=== PATIENT | female | born 1940 | race Caucasian/White ===

== ENCOUNTER → 2018-06-29 11:49 | Outpatient (CLI) | payer MEDICARE, SELFPAY ==
[2018-06-29 13:15] LABS: Basophils # 0.1 K/mm3 (0-0.2); Basophils % 0.4 % (0.1-2.0); Eosinophils # 1.8 K/mm3 (0.0-0.4); Eosinophils % 15.8 % (0.1-12.0); Hematocrit 40.6 % (37.0-47.0); Hemoglobin 12.9 g/dL (12.2-16.2); Lymphocytes # 3.3 K/mm3 (0.7-4.5); Lymphocytes % 29.4 K/mm3 (10-50); Mean Corpuscular HGB Conc 31.9 g/dL (31.8-35.4); Mean Corpuscular Hemoglobin 29.8 pg (27.0-31.2); Mean Corpuscular Volume 93.5 fl (81-99); Mean Platelet Volume 8.7 fl (7.4-10.4); Monocytes # 0.4 K/mm3 (0.1-1.0); Monocytes % 3.7 % (1.7-9.3); Neutrophils # 5.7 K/mm3 (1.8-7.8); Neutrophils % 50.6 % (37.0-80.0); Platelet Count 262 K/mm3 (142-424); Red Blood Count 4.34 M/mm3 (4.20-5.40); Red Cell Distribution Width 14.6 % (11.5-17.5); White Blood Count 11.2 K/mm3 (4.8-10.8)
[2018-06-29 14:30] LABS: Alanine Aminotransferase 17 U/L (12-78); Albumin Level 3.6 gm/dL (3.4-5.0); Albumin/Globulin Ratio 1.1 (1.1-1.8); Alkaline Phosphatase 88 U/L (46-116); Anion Gap 9.6 mEq/L (5-15); Aspartate Amino Transferase 15 U/L (15-37); Bilirubin,Total 0.4 mg/dL (0.2-1.0); Blood Urea Nitrogen 13 mg/dL (7-18); Calcium 8.7 mg/dL (8.5-10.1); Carbon Dioxide 32 mmol/L (21.0-32.0); Chloride 102 mmol/L (98-107); Cholesterol 157 mg/dL (140-200); Creatinine,Serum 0.66 mg/dL (0.55-1.02); Estimated Glomerular Filt Rate 86 ml/min (>60); Free Thyroxine Index 3.2 ug/dL (5.93-13.13); GFR (African American) 105 ML/MIN (>60); Globulin 3.4 gm/dl (1.3-3.2); Glucose 89 mg/dL (74-106); HDL Cholesterol 53 mg/dL (29-89); LDL Cholesterol 66 mg/dL (0-130); Magnesium 1.9 mg/dL (1.4-2.2); Potassium 3.6 mmoL/L (3.5-5.1); Sodium 140 mmol/L (136-145); T4 (Thyroxine) 9.9 ug/dl (4.7-13.3); Thyroid Stimulating Hormone 1.98 uIU/ml (0.358-3.740); Triglycerides 188 mg/dL (30-200); Triiodothryronine (T3) Uptake 32 % (31-39); VLDL Cholesterol 38 mg/dL (0-40)
== END ==
PROVIDERS: PCP Internal Medicine Adolescent Medicine; Visit Provider Internal Medicine Adolescent Medicine
DX: J44.9 Chronic obstructive pulmonary disease, unspecified (principal); E78.1 Pure hyperglyceridemia; G47.62 Sleep related leg cramps
CPT/HCPCS: 36415; 80053; 80061; 83735; 84436; 84443; 84479; 85025

== ENCOUNTER 2018-12-10 12:38 | Observation (INO) ==
--- NOTE | 2018-12-10 12:55 | Emergency Department Note ---
ED Disposition Clinical Impression: Colitis Disposition: Admitted As Inpatient Condition on Discharge: Fair Referrals: Provider,Supa, [Primary Care Provider] - Time of Disposition: 19:31 - Critical Care Critical Care Time: No Attestation: On 12/10/18, the high probability of a clinically significant, sudden or life threatening deterioration of the following system(s) required my full and direct attention, intervention and personal management. The time I documented below is in addition to time spent performing reported procedures but includes the following listed in this critical care notation. Medical Decision Making - Medical Records Medical records reviewed: Yes: I reviewed the patient's medical records. - Valentin Inquiry Pt receiving controlled substance: No Valentin was queried for this patient: No Vital Signs: 12/10/18 12:49 12/10/18 13:57 12/10/18 14:30 Temperature 98.1 F Temperature Source Oral Pulse Rate [Left Radial] 60 77 87 Respiratory Rate 17 16 17 Blood Pressure [Right Arm] 135/74 111/52 L 123/85 Blood Pressure Mean [Right Arm] 94 71 97 Blood Pressure Source [Right Arm] Automatic Cuff Automatic Cuff Automatic Cuff Blood Pressure Position [Right Arm] Sitting Sitting Sitting 02 Sat by Pulse Oximetry 94 L 94 L 95 Oxygen Delivery Method Room Air Room Air Nasal Cannula Oxygen Flow Rate (LPM) 2 12/10/18 15:00 12/10/18 16:15 12/10/18 17:00 Temperature Temperature Source Pulse Rate [Left Radial] 89 76 69 Respiratory Rate 20 16 Blood Pressure [Right Arm] 119/81 97/43 L 107/53 L Blood Pressure Mean [Right Arm] 93 61 71 Blood Pressure Source [Right Arm] Automatic Cuff Automatic Cuff Automatic Cuff Blood Pressure Position [Right Arm] Sitting Sitting Supine 02 Sat by Pulse Oximetry 99 93 L 96 Oxygen Delivery Method Room Air Room Air Oxygen Flow Rate (LPM) 12/10/18 17:30 12/10/18 18:14 Temperature Temperature Source Pulse Rate [Left Radial] 98 H 81 Respiratory Rate 18 18 Blood Pressure [Right Arm] 116/70 141/66 H Blood Pressure Mean [Right Arm] 85 91 Blood Pressure Source [Right Arm] Blood Pressure Position [Right Arm] 02 Sat by Pulse Oximetry 98 96 Oxygen Delivery Method Room Air Room Air Oxygen Flow Rate (LPM) - Lab Data Lab results reviewed: Yes: I reviewed the patient's lab results. Lab Results 12/10/18 13:32: POC Glucose 106 12/10/18 15:15: Urine Color Yellow, Urine Appearance Clear, Urine pH 6.0, Ur Specific [place] 1.025, Urine Protein Negative, Urine Glucose (UA) Negative, Urine Ketones Negative, Urine Blood Negative, Urine Nitrate Negative, Urine Bilirubin Negative, Urine Urobilinogen 0.2, Ur Leukocyte Esterase Negative, Urine RBC None, Urine WBC None, Ur Squamous Epith Cells Occasional, Urine Bacteria Trace, Urine Mucus 1+ 12/10/18 15:33: WBC 12.8 H, RBC 4.10 L, Hgb 12.3, Hct 38.9, MCV 95.0, MCH 30.1, MCHC 31.6 L, RDW 14.8, Plt Count 207, MPV 9.7, Neut % (Auto) 74.5, Lymph % ( Auto) 14.5, [place] % (Auto) 3.1, Eos % (Auto) 7.5, Baso % (Auto) 0.4, Neut # (Auto) 9.5 H, Lymph # (Auto) 1.9, [place] # (Auto) 0.4, Eos # (Auto) 1.0 H, Baso # (Auto) 0.1 12/10/18 15:33: Sodium 143, Potassium 4.7, Chloride 106, Carbon Dioxide 25, Anion Gap 16.7 H, BUN 16, Creatinine 0.98, Estimated Creat Clear 34, Estimated GFR 55 L, Est GFR ( Amer) 66, Glucose 107 H, Calcium 9.0, Total Bilirubin 0.5, AST 21, ALT 23, Alkaline Phosphatase 87, Total Protein 7.7, Albumin 3.6, Globulin 4.1 H, Albumin/Globulin Ratio 0.9 L Result diagrams: 12/10/18 15:33 12/10/18 15:33 Orders (Tests/Meds): ED MEDICATIONS Discontinued Medications Generic Name Dose Route Start Last Admin Trade Name Freq PRN Reason Stop Dose Admin Lorazepam 1 mg 12/10/18 17:55 12/10/18 17:57 Ativan 1mg Tablet PO 12/10/18 17:56 1 mg ONCE ONE Administration ORDERS Category Date Time Status Drug Screen,Urine Stat Lab 12/10/18 15:15 Received General Adult HPI - General Stated complaint: headache Time Seen by Provider: 04/11/19 12:51 Mode of Arrival: EMS Source of Information: Patient, EMS Limitations: No Limitations - History of Present Illness HPI narrative: right sided headache, "buzzing in head", now R sided neck pain and agitation - Related Data Home Medications Medication Instructions Recorded Confirmed Amlodipine Besylate [Norvasc 5mg 5 mg PO DAILY 03/21/18 12/10/18 tablet] Baclofen [Lioresal 10mg tablet] 10 mg PO TIDP PRN 03/21/18 12/10/18 Hydrocodone/Acetaminophen 1 each PO QID 03/21/18 12/10/18 [Hydrocodone-Acetamin 10-325 mg] Montelukast Sodium [Montelukast 10 mg PO HS 03/21/18 12/10/18 10mg Tab] Omeprazole [Omeprazole 40mg 40 mg PO DAILY 03/21/18 12/10/18 Capsule] RX: Buspirone HCl [Buspar 10mg 10 mg PO TID PRN 03/21/18 12/10/18 tablet] Simvastatin [Zocor] 20 mg PO HS 03/21/18 12/10/18 Fluoxetine HCl [Fluoxetine Dr] 90 mg PO DAILY 12/10/18 12/10/18 Gabapentin [Gabapentin 300mg Cap] 300 mg PO DAILY 12/10/18 12/10/18 RX: Ibuprofen [Ibuprofen 600mg 600 mg PO DAILY 12/10/18 12/10/18 Tablet] dimenhyDRINATE [Dimenhydrinate] 50 mg PO DAILY 12/10/18 12/10/18 Allergies Allergy/AdvReac Type Severity Reaction Status Date / Time Codeine Allergy Intermediate Uncoded 03/21/18 12:49 [facility] History - Hepatitis A Screen Attestation statement:: This patient has been screened for Hepatitis A risk factors. I have reviewed the patient's past medical history: Yes Laterality Cases: Bilateral: Tonsillectomy, Total Hip Replacement - Social History Alcohol Intake: never ROS Obtained: Yes All systems reviewed & no additional complaints - Constitutional Constitutional: Reports system reviewed and no additional complaints, except as docu, Denies chills, Denies fever(s) - Eyes Eyes: Denies change in vision - ENT Ears, Nose, Mouth, and Throat: Denies system reviewed and no additional complaints, except as docu, Denies sore throat, Denies throat swelling - Cardiovascular Cardiovascular: Denies chest pain, Denies pedal edema, Denies rapid heart rate, Denies slow heart rate - Respiratory Respiratory: No system reviewed and no additional complaints, except as docu, Yes chest congestion, Yes cough, No dyspnea - Gastrointestinal Gastrointestingal: Reports: system reviewed and no additional complaints, except as docu - Musculoskeletal Musculoskeletal: Denies joint pain, Denies joint stiffness, Denies joint swelling - Integumentary/Breasts Skin/Breast: Denies redness, Denies rash - Neurologic Neurologic: Reports unsteadiness, Reports headache(s), Reports tremor(s), Reports other (worsening of baseline) - Hematologic/Lymphatic Henatologic/Lymphatic: Denies easy bleeding, Denies easy bruising Physical Exam - General General appearance: alert, in no apparent distress, other (gross tremor) - Head Head exam: atraumatic, normocephalic, normal inspection - Eye Eye exam: Present: normal appearance, PERRL, EOMI - ENT ENT exam: Present: normal exam, normal oropharynx, mucous membranes moist, TM's normal bilaterally, normal external ear exam - Neck Neck exam: Present: normal inspection, full ROM, trachea midline. Absent: meningismus, lymphadenopathy - Respiratory Respiratory exam: Present: normal lung sounds bilaterally. Absent: respiratory distress - Cardiovascular Cardiovascular exam: Present: regular rate, normal rhythm. Absent: JVD - Abdominal Exam Abdominal exam: Present: soft, normal bowel sounds. Absent: distention, tenderness, guarding - Extremities Exam Extremities exam: Present: normal inspection, full ROM, normal capillary refill. Absent: calf tenderness - Neurological Exam Neurological exam: Present: alert, oriented X3, CN II-XII intact. Absent: motor sensory deficit - Psychiatric Psychiatric exam: Present: agitated - Skin Skin exam: Present: warm, dry, intact, normal color
[2018-12-10 15:21] LABS: Microscopic, Urine URINE MICROSCOPIC (MICROSCOPIC)
[2018-12-10 15:23] LABS: Appearance,Urine CLEAR (Clear); Bilirubin,Urine Negative (Negative); Blood, Urine Negative (Negative); Color,Urine YELLOW (Yellow); Glucose,Urine (UA) Negative (Negative); Ketones,Urine Negative (Negative); Leukocyte Esterase,Urine Negative (Negative); Protein,Urine Negative (Negative); Specific Gravity, Urine 1.025 (1.005-1.030); Urobilinogen,Urine 0.2 EU/dl (0.2)
[2018-12-10 15:35] LABS: Bacteria,Urine Trace /lpf; Mucus,Urine 1+ /lpf; Squamous Epithelial Cell,Urine Occasional #/hpf (0-5)
[2018-12-10 15:45] LABS: Basophils # 0.1 K/mm3 (0-0.2); Basophils % 0.4 % (0.1-2.0); Eosinophils % 7.5 % (0.1-12.0); Hematocrit 38.9 % (37.0-47.0); Hemoglobin 12.3 g/dL (12.2-16.2); Lymphocytes # 1.9 K/mm3 (0.7-4.5); Lymphocytes % 14.5 % (10-50); Mean Corpuscular HGB Conc 31.6 g/dL (31.8-35.4); Mean Corpuscular Hemoglobin 30.1 pg (27.0-31.2); Mean Platelet Volume 9.7 fl (7.4-10.4); Monocytes # 0.4 K/mm3 (0.1-1.0); Monocytes % 3.1 % (1.7-9.3); Neutrophils # 9.5 K/mm3 (1.8-7.8); Neutrophils % 74.5 % (37.0-80.0); Platelet Count 207 K/mm3 (142-424); Red Cell Distribution Width 14.8 % (11.5-17.5); White Blood Count 12.8 K/mm3 (4.8-10.8)
[2018-12-10 15:54] LABS: Albumin Level 3.6 gm/dL (3.4-5.0); Albumin/Globulin Ratio 0.9 (1.1-1.8); Anion Gap 16.7 mEq/L (5-15); Bilirubin,Total 0.5 mg/dL (0.2-1.0); Globulin 4.1 gm/dl (1.3-3.2); Potassium 4.7 mmoL/L (3.5-5.1); Total Protein,Serum 7.7 gm/dL (6.4-8.2)
[2018-12-10 19:43] LABS: Amphetamine/Metha Screen,Urine Negative ng/mL (<1000); Barbiturates Screen,Urine Negative ng/mL (<200); Benzodiazepines Screen,Urine Negative ng/mL (<200); Cannabinoid Screen,Urine Negative ng/mL (<50); Cocaine Screen,Urine Negative ng/mL (<300); Methadone Screen,Urine Negative ng/mL (<300); Opiate Screen,Urine Positive ng/mL (<300); Phencyclidine Screen,Urine Negative ng/mL (<25)
[2018-12-11 06:02] LABS: Basophils % 0.3 % (0.1-2.0); Eosinophils % 9.8 % (0.1-12.0); Hematocrit 33.6 % (37.0-47.0); Hemoglobin 11.2 g/dL (12.2-16.2); Lymphocytes # 2.2 K/mm3 (0.7-4.5); Lymphocytes % 22.2 % (10-50); Mean Corpuscular HGB Conc 33.3 g/dL (31.8-35.4); Mean Corpuscular Hemoglobin 30.7 pg (27.0-31.2); Mean Corpuscular Volume 92.2 fl (81-99); Mean Platelet Volume 9.9 fl (7.4-10.4); Monocytes # 0.3 K/mm3 (0.1-1.0); Monocytes % 3.4 % (1.7-9.3); Neutrophils # 6.3 K/mm3 (1.8-7.8); Neutrophils % 64.2 % (37.0-80.0); Platelet Count 188 K/mm3 (142-424); Red Blood Count 3.64 M/mm3 (4.20-5.40); Red Cell Distribution Width 14.5 % (11.5-17.5); White Blood Count 9.8 K/mm3 (4.8-10.8)
[2018-12-11 06:12] LABS: Anion Gap 13.4 mEq/L (5-15); Calcium 8.6 mg/dL (8.5-10.1); Potassium 3.4 mmoL/L (3.5-5.1)
--- NOTE | 2018-12-11 07:37 | Pharmacy Consult Notes ---
[facility] Pharmacy VTE Monitoring - Patient Demographics Admission date: 12/10/18 Report Date: 12/11/18 Time: 07:37 Allergies/Adverse Reactions: Patient Allergies Codeine Allergy (Intermediate, Uncoded 03/21/18 12:49) Height: 1.55 m Weight: 66.763 kg Patient Problems: Current Active Problems Colitis (Acute) Change in mental status (Acute) Psychosis (Acute) - VTE Risk Labs: VTE Related Lab Results Hgb 11.2 g/dL (12.2-16.2) L 12/11/18 05:48 Hct 33.6 % (37.0-47.0) L 12/11/18 05:48 Plt Count 188 K/mm3 (142-424) 12/11/18 05:48 BUN 15 mg/dL (7-18) 12/11/18 05:48 Creatinine 0.78 mg/dL (0.55-1.02) D 12/11/18 05:48 Estimated Creat Clear 48 mL/min (50-200) 12/11/18 05:48 VTE Score: 8 VTE Risk Level: Moderate Risk - Prophylaxis VTE Prophylaxis Ordered?: Yes Types of VTE Prophylaxis: TEDS Knee High Location of Applied Device: Bilateral Lower Extremeties - VTE Diagnosis Confirmed Treatment or plan recommended: Continue Current Treatment
--- NOTE | 2018-12-11 11:57 | History & Physical Report ---
*Admission Date: 12/10/18 *Chief complaint: confused, encephalopathic *History of present illness: 77-year-old female who presents with her niece. They initially presented to the emergency room last night due to concern for worsening confusion and hallucinations. Patient is oriented to person place and time with subsequent response to internal stimuli and begins answering questions she was not asked by myself. She denies any fever, trauma, falls, syncope, new medications. Her niece who is with her states that for the past 3-4 days she has become more altered and confused. She appears pleasant and is not a danger to herself however her behavior is quite concerning to her family. Her niece states that there is a significant family history of psychiatric problems, the patient has always been a little different per her but never has she had hallucinations. Brought her medications with her, she is on multiple things that are of concern he could have adverse reaction including hallucination. Admitted for observation and psychiatric evaluation [facility] History I have reviewed the patient's past medical history: Yes Medical History: Reports:: Hyperlipidemia, Hypertension Denies:: Cancer, Diabetes Mellitus Type 1, Diabetes Mellitus Type 2, MRSA *Have you ever received a pneumonia vaccine?: Yes *Have you received a flu vaccine this season?: Yes Laterality Cases: Bilateral: Tonsillectomy, Total Hip Replacement, Total Knee Replacement Other Surgeries: Yes: Colonoscopy, Hysterectomy-Partial Amputation: No Fractures: No - *Social History Educational Level: Attended High School Smoking Status: Former smoker Alcohol Intake: never Substance Use Type: opiates *Occupational Status:: retired Housing: house Household Members: family *Travel in the last 8 weeks: None - Psychiatric History Expresses thoughts of harming self/others: None Suicide Plan Description: No Plan Family Hx:: Diabetes Review of Systems - Review of Systems Review of systems:: pertinent systems reviewed and negative unless documented below - *Neurologic Reports unsteadiness, Reports headache(s), Reports tremor(s), Reports other (worsening of baseline) Meds Home Medications Medication Instructions Recorded Confirmed Type Amlodipine Besylate [Norvasc 5mg 5 mg PO DAILY 03/21/18 12/10/18 History tablet] Hydrocodone/Acetaminophen 1 each PO QID 03/21/18 12/10/18 History [Hydrocodone-Acetamin 10-325 mg] Montelukast Sodium [Montelukast 10 mg PO HS 03/21/18 12/10/18 History 10mg Tab] Omeprazole [Omeprazole 40mg 40 mg PO DAILY 03/21/18 12/10/18 History Capsule] Simvastatin [Zocor] 20 mg PO HS 03/21/18 12/10/18 History Gabapentin [Gabapentin 300mg Cap] 300 mg PO DAILY 12/10/18 12/10/18 History Cholecalciferol (Vitamin D3) 1,000 unit PO DAILY 12/11/18 12/11/18 History [Vitamin D3 1,000 Unit Cap] Cyanocobalamin (Vitamin B-12) 1,000 mcg SQ MONTHLY 12/11/18 12/11/18 History [Cyanocobalamin 1,000mcg/mL Vial] Multivitamin [Multivitamins] 1 each PO DAILY 12/11/18 12/11/18 History Allergies Allergy/AdvReac Type Severity Reaction Status Date / Time codeine Allergy Unknown Verified 12/11/18 07:48 allergy reaction Exam Vital signs and Labs for Last 24 Hours: Temp Pulse Resp BP Pulse Ox 97.9 F 83 18 157/48 H 95 12/11/18 08:00 12/11/18 08:00 12/11/18 08:00 12/11/18 08:00 12/11/18 08:00 Laboratory Results - last 24 hr 12/10/18 13:32: POC Glucose 106 12/10/18 15:15: Urine Color Yellow, Urine Appearance Clear, Urine pH 6.0, Ur Specific [place] 1.025, Urine Protein Negative, Urine Glucose (UA) Negative, Urine Ketones Negative, Urine Blood Negative, Urine Nitrate Negative, Urine Bilirubin Negative, Urine Urobilinogen 0.2, Ur Leukocyte Esterase Negative, Urine RBC None, Urine WBC None, Ur Squamous Epith Cells Occasional, Urine Bacteria Trace, Urine Mucus 1+ 12/10/18 15:15: Urine Opiates Screen Positive H, Urine Methadone Screen Negative, Ur Barbituates Screen Negative, Ur Phencyclidine Scrn Negative, Ur Amphetamines Screen Negative, U Benzodiazepines Scrn Negative, Urine Cocaine Screen Negative, U Marijuana (THC) Screen Negative 12/10/18 15:33: WBC 12.8 H, RBC 4.10 L, Hgb 12.3, Hct 38.9, MCV 95.0, MCH 30.1, MCHC 31.6 L, RDW 14.8, Plt Count 207, MPV 9.7, Neut % (Auto) 74.5, Lymph % (Auto) 14.5, [place] % (Auto) 3.1, Eos % (Auto) 7.5, Baso % (Auto) 0.4, Neut # (Auto) 9.5 H, Lymph # (Auto) 1.9, [place] # (Auto) 0.4, Eos # (Auto) 1.0 H, Baso # (Auto) 0.1 12/10/18 15:33: Sodium 143, Potassium 4.7, Chloride 106, Carbon Dioxide 25, Anion Gap 16.7 H, BUN 16, Creatinine 0.98, Estimated Creat Clear 34, Estimated GFR 55 L, Est GFR ( Amer) 66, Glucose 107 H, Calcium 9.0, Total Bilirubin 0.5, AST 21, ALT 23, Alkaline Phosphatase 87, Total Protein 7.7, Albumin 3.6, Globulin 4.1 H, Albumin/Globulin Ratio 0.9 L 12/11/18 05:48: WBC 9.8, RBC 3.64 L, Hgb 11.2 L, Hct 33.6 L, MCV 92.2, MCH 30.7, MCHC 33.3, RDW 14.5, Plt Count 188, MPV 9.9, Neut % (Auto) 64.2, Lymph % (Auto) 22.2, [place] % (Auto) 3.4, Eos % (Auto) 9.8, Baso % (Auto) 0.3, Neut # (Auto) 6.3, Lymph # (Auto) 2.2, [place] # (Auto) 0.3, Eos # (Auto) 1.0 H, Baso # (Auto) 0.0 12/11/18 05:48: Sodium 142, Potassium 3.4 L D, Chloride 107, Carbon Dioxide 25, Anion Gap 13.4, BUN 15, Creatinine 0.78 D, Estimated Creat Clear 48, Estimated GFR 71, Est GFR ( Amer) 86 D, Glucose 98, Calcium 8.6 12/11/18 07:32: Ammonia < 10 L I & O for Last 24 hours: Intake & Output 12/08/18 12/09/18 12/10/18 12/11/18 23:59 23:59 23:59 23:59 Intake Total 120 / 120 Balance 120 / 120 Weight 66.763 kg 66.763 kg Narrative: Pleasant 77-year-old female who appears stated age. Alert and oriented to person place and time, responding to internal stimuli including visual and auditory hallucinations. Lungs clear to auscultation without rhonchi or wheeze. Heart regular without murmur. No lower extremity edema. Pulses 2+ throughout. Abdomen soft nontender, nondistended.. Assessment and Plan (1) Encephalopathy acute Status: Acute Category: Medical Code(s): G93.40 - Encephalopathy, unspecified Peers to be acute over the past couple days. Review of patient's medications shows that she takes significant psychiatric meds along with pain medication. Additionally there are several unprescribed [id number] medications including Benadryl, caffeine, dextromethorphan, and dimenhydrinate. All of these together could account for adverse reactions and interactions with hallucinations and encephalopathy being 1 of those symptoms. At this time a consultation has been placed with psychiatry for assessment of the patient. Will hold patient's medications other than her Prozac to decrease her exposure and help clear her system of possible adverse interacting medications that can have psychiatric side effects. Currently patient is not a harm to herself or others. She is not aggressive. Further management pending psychiatry's recommendations. (2) COPD (chronic obstructive pulmonary disease) Status: Chronic Qualifiers: COPD type: chronic bronchitis Category: Medical Code(s): J44.9 - Chronic obstructive pulmonary disease, unspecified Stable. No symptoms at this time. Not on any inhalers at home. Think treatments if has any respiratory distress (3) HTN (hypertension) Status: Chronic Qualifiers: Hypertension type: essential hypertension Qualified Code(s): I10 - Essential (primary) hypertension Category: Medical Code(s): I10 - Essential (primary) hypertension Continue home regimen. (4) Anxiety Status: Chronic Category: Medical Code(s): F41.9 - Anxiety disorder, unspecified Restart patient's Prozac. Holding all other meds at this time. Pending psychiatry recommendation and assessment (5) Headache Status: Acute Qualifiers: Headache type: tension-type Category: Medical Code(s): R51 - Headache Stable on exam this morning. On hydrocodone with Tylenol, no additional pain meds at this time - Assessment and plan all Dx Assessment and Plan for all problems:: At this time extensive med review was done. Significant interaction between patient's antidepressants and [id number] medications including Benadryl, dimenhydrinate, caffeine pills, Mucinex D. Suspect adverse medication reaction. Psychiatry to assess patient and do formal evaluation. Further management pending psychiatric recommendations.
--- NOTE | 2018-12-11 16:56 | Consult Report ---
*Admission Date: 12/10/18 *Chief complaint: Consult by attention for change in mental status and psychosis. *History of present illness: I saw Mrs. Alejandra in her room. She was sitting up in the bed eating lunch. She states that the reason she is here is because of a stinging in her tongue. She states that it started there then went to her legs; and her pelvis; then she states that if it went to her head that she would have . She states that when this started to happen she just prayed over and over that she would be okay. -her niece is at the beside and she does confirm this story. -her niece states that she went into Palmer's bedroom to check on her yesterday morning -when she went in her room; she was bending over like she was trying to continuous pickling line pickler helper something off the ground; but there was nothing there -she states that this is when she started talking about having something on her tongue -she states that Vilma had picked at this spot on her tongue until it was raw; but there was nothing there -this is when they brought her to the ER -her niece states that this has never happened to her before While I was in the room; Vilma did engage in very odd conversations. She would say things like '10 on the 9; and above the 19'. She told me that above my left eye I had the numbers '10' '5' 'y' on there. There was one point that she was rubbing her finger with her napkin. When I asked her what she was doing; she stated that she had 7's on her finger and she could not get them off. Her niece states that she has been seeing number and letters since all of this happened yesterday. Her niece also states that Vilma was taking care of her medications prior to this incident. She states that they are not sure if she mixed up any of her medications or how she was really taking everything. I also talked to Dr. Rivera. He states that all her test came back normal and there is no obvious explanation for this. RECOMMENDATIONS: -have her niece take over her medication management and distributing the medications daily -Follow up with myself on Friday in the specialty clinic -if symptoms are not better; will consider putting her on an anti-psychotic to clear the hallucinations up -I did relay this over the phone to Dr. Rivera; he is agreeable to the above. -also; hold her buspar and prozac at this time -want to eliminate all unnecessary medications at this time to see if the ps ychosis clears up on its own [facility] History Medical History: Reports:: Hyperlipidemia, Hypertension Denies:: Cancer, Diabetes Mellitus Type 1, Diabetes Mellitus Type 2, MRSA *Have you ever received a pneumonia vaccine?: Yes *Have you received a flu vaccine this season?: Yes Laterality Cases: Bilateral: Tonsillectomy, Total Hip Replacement, Total Knee Replacement Other Surgeries: Yes: Colonoscopy, Hysterectomy-Partial Amputation: No Fractures: No - *Social History Educational Level: Attended High School Smoking Status: Former smoker Alcohol Intake: never Substance Use Type: opiates *Occupational Status:: retired Housing: house Household Members: family *Travel in the last 8 weeks: None - Psychiatric History Expresses thoughts of harming self/others: None Suicide Plan Description: No Plan Family Hx:: Diabetes Review of Systems - *Neurologic Reports unsteadiness, Reports headache(s), Reports tremor(s), Reports other (worsening of baseline) Meds Home Medications Medication Instructions Recorded Confirmed Type Amlodipine Besylate [Norvasc 5mg 5 mg PO DAILY 03/21/18 12/10/18 History tablet] Baclofen [Lioresal 10mg tablet] 10 mg PO BIDP PRN 03/21/18 12/11/18 History Buspirone HCl [Buspar 10mg tablet] 10 mg PO TIDP PRN 03/21/18 12/11/18 History Hydrocodone/Acetaminophen 1 each PO QID 03/21/18 12/10/18 History [Hydrocodone-Acetamin 10-325 mg] Montelukast Sodium [Montelukast 10 mg PO HS 03/21/18 12/10/18 History 10mg Tab] Omeprazole [Omeprazole 40mg 40 mg PO DAILY 03/21/18 12/10/18 History Capsule] Simvastatin [Zocor] 20 mg PO HS 03/21/18 12/10/18 History Gabapentin [Gabapentin 300mg Cap] 300 mg PO DAILY 12/10/18 12/10/18 History Ibuprofen [Ibuprofen 600mg 600 mg PO Q6HP PRN 12/10/18 12/11/18 History Tablet] dimenhyDRINATE [Dimenhydrinate] 50 mg PO DAILY 12/10/18 12/10/18 History Caffeine 200 mg PO NEEDED PRN 12/11/18 12/11/18 History Cholecalciferol (Vitamin D3) 1,000 unit PO DAILY 12/11/18 12/11/18 History [Vitamin D3 1,000 Unit Cap] Cyanocobalamin (Vitamin B-12) 1,000 mcg SQ MONTHLY 12/11/18 12/11/18 History [Cyanocobalamin 1,000mcg/mL Vial] Fluoxetine HCl 40 mg PO DAILY 12/11/18 12/11/18 History Guaifenesin/Dextromethorphan 1 tab PO BID 12/11/18 12/11/18 History [Mucinex Dm ER 1,200-60 mg Tab] Multivitamin [Multivitamins] 1 each PO DAILY 12/11/18 12/11/18 History diphenhydrAMINE HCl 25 mg PO Q6HP PRN 12/11/18 12/11/18 History [Diphenhydramine HCl] Allergies Allergy/AdvReac Type Severity Reaction Status Date / Time codeine Allergy Unknown Verified 12/11/18 07:48 allergy reaction Exam Vital signs and Labs for Last 24 Hours: Temp Pulse Resp BP Pulse Ox 98.2 F 90 18 148/59 H 91 L 12/11/18 15:33 12/11/18 15:33 12/11/18 15:33 12/11/18 15:33 12/11/18 15:33 Laboratory Results - last 24 hr 12/10/18 13:32: POC Glucose 106 12/10/18 15:15: Urine Opiates Screen Positive H, Urine Methadone Screen Negative, Ur Barbituates Screen Negative, Ur Phencyclidine Scrn Negative, Ur Amphetamines Screen Negative, U Benzodiazepines Scrn Negative, Urine Cocaine Screen Negative, U Marijuana (THC) Screen Negative 12/11/18 05:48: WBC 9.8, RBC 3.64 L, Hgb 11.2 L, Hct 33.6 L, MCV 92.2, MCH 30.7, MCHC 33.3, RDW 14.5, Plt Count 188, MPV 9.9, Neut % (Auto) 64.2, Lymph % (Auto) 22.2, [place] % (Auto) 3.4, Eos % (Auto) 9.8, Baso % (Auto) 0.3, Neut # (Auto) 6.3, Lymph # (Auto) 2.2, [place] # (Auto) 0.3, Eos # (Auto) 1.0 H, Baso # (Auto) 0.0 12/11/18 05:48: Sodium 142, Potassium 3.4 L D, Chloride 107, Carbon Dioxide 25, Anion Gap 13.4, BUN 15, Creatinine 0.78 D, Estimated Creat Clear 48, Estimated GFR 71, Est GFR ( Amer) 86 D, Glucose 98, Calcium 8.6 12/11/18 07:32: Ammonia < 10 L I & O for Last 24 hours: Intake & Output 12/09/18 12/10/18 12/11/18 12/12/18 11:59 11:59 11:59 11:59 Intake Total 120 / 120 360 / 360 Output Total 250 / 250 Balance 120 / 120 110 / 110 Weight 147 lb 3 oz Internal Medicine - CN: Reslt - Labs CBC & Chem 7: 12/11/18 05:48 12/11/18 05:48 Labs: Short CBC 12/11/18 Range/Units 05:48 WBC 9.8 (4.8-10.8) K/mm3 Hgb 11.2 L (12.2-16.2) g/dL Hct 33.6 L (37.0-47.0) % Plt Count 188 (142-424) K/mm3 BMP 12/11/18 05:48 Sodium 142 Potassium 3.4 L D Chloride 107 Carbon Dioxide 25 BUN 15 Creatinine 0.78 D Glucose 98 Calcium 8.6 Assessment and Plan (1) Encephalopathy acute Current visit: Yes Status: Acute Category: Medical Code(s): G93.40 - Encephalopathy, unspecified (2) COPD (chronic obstructive pulmonary disease) Current visit: Yes Status: Chronic Qualifiers: COPD type: chronic bronchitis Category: Medical Code(s): J44.9 - Chronic obstructive pulmonary disease, unspecified (3) HTN (hypertension) Current visit: Yes Status: Chronic Qualifiers: Hypertension type: essential hypertension Qualified Code(s): I10 - Essential (primary) hypertension Category: Medical Code(s): I10 - Essential (primary) hypertension (4) Anxiety Current visit: Yes Status: Chronic Category: Medical Code(s): F41.9 - Anxiety disorder, unspecified (5) Headache Current visit: No Status: Acute Qualifiers: Headache type: tension-type Category: Medical Code(s): R51 - Headache
--- NOTE | 2018-12-11 17:46 | Discharge Summary ---
General - General Admission date:: 12/10/18 Discharge date: 12/11/18 Objective Vital signs: Temp Pulse Resp BP Pulse Ox 98.2 F 90 18 148/59 H 91 L 12/11/18 15:33 12/11/18 15:33 12/11/18 15:33 12/11/18 15:33 12/11/18 15:33 Results Labs on day of discharge: Labs from last 24 hours 12/11/18 12/11/18 12/11/18 07:32 05:48 05:48 WBC 9.8 RBC 3.64 L Hgb 11.2 L Hct 33.6 L MCV 92.2 MCH 30.7 MCHC 33.3 RDW 14.5 Plt Count 188 MPV 9.9 Neut % (Auto) 64.2 Lymph % (Auto) 22.2 [place] % (Auto) 3.4 Eos % (Auto) 9.8 Baso % (Auto) 0.3 Neut # (Auto) 6.3 Lymph # (Auto) 2.2 [place] # (Auto) 0.3 Eos # (Auto) 1.0 H Baso # (Auto) 0.0 Sodium 142 Potassium 3.4 L D Chloride 107 Carbon Dioxide 25 Anion Gap 13.4 BUN 15 Creatinine 0.78 D Estimated Creat Clear 48 Estimated GFR 71 Est GFR ( Amer) 86 D Glucose 98 POC Glucose Calcium 8.6 Ammonia < 10 L Urine Opiates Screen Urine Methadone Screen Ur Barbituates Screen Ur Phencyclidine Scrn Ur Amphetamines Screen U Benzodiazepines Scrn Urine Cocaine Screen U Marijuana (THC) Screen 12/10/18 12/10/18 15:15 13:32 WBC RBC Hgb Hct MCV MCH MCHC RDW Plt Count MPV Neut % (Auto) Lymph % (Auto) [place] % (Auto) Eos % (Auto) Baso % (Auto) Neut # (Auto) Lymph # (Auto) [place] # (Auto) Eos # (Auto) Baso # (Auto) Sodium Potassium Chloride Carbon Dioxide Anion Gap BUN Creatinine Estimated Creat Clear Estimated GFR Est GFR ( Amer) Glucose POC Glucose 106 Calcium Ammonia Urine Opiates Screen Positive H Urine Methadone Screen Negative Ur Barbituates Screen Negative Ur Phencyclidine Scrn Negative Ur Amphetamines Screen Negative U Benzodiazepines Scrn Negative Urine Cocaine Screen Negative U Marijuana (THC) Screen Negative DS: Diagnosis - Discharge Diagnosis (1) Encephalopathy acute Status: Acute (2) COPD (chronic obstructive pulmonary disease) Status: Chronic (3) HTN (hypertension) Status: Chronic (4) Anxiety Status: Chronic (5) Headache Status: Acute Discharge Plan - Patient Discharge Instructions Patient Instructions: DI for Colitis, DI for Psychosis, Psychosis - Follow up Plan Follow up with: Paris Felix APRN [Nurse Practitioner] - (12/14/18 @ 4:00 PM) Home Medications: Home Medications Medication Instructions Recorded Confirmed Type Amlodipine Besylate [Norvasc 5mg 5 mg PO DAILY 03/21/18 12/10/18 History tablet] Baclofen [Lioresal 10mg tablet] 10 mg PO BIDP PRN 03/21/18 12/11/18 History Buspirone HCl [Buspar 10mg tablet] 10 mg PO TIDP PRN 03/21/18 12/11/18 History Hydrocodone/Acetaminophen 1 each PO QID 03/21/18 12/10/18 History [Hydrocodone-Acetamin 10-325 mg] Montelukast Sodium [Montelukast 10 mg PO HS 03/21/18 12/10/18 History 10mg Tab] Omeprazole [Omeprazole 40mg 40 mg PO DAILY 03/21/18 12/10/18 History Capsule] Simvastatin [Zocor] 20 mg PO HS 03/21/18 12/10/18 History Gabapentin [Gabapentin 300mg Cap] 300 mg PO DAILY 12/10/18 12/10/18 History Ibuprofen [Ibuprofen 600mg 600 mg PO Q6HP PRN 12/10/18 12/11/18 History Tablet] dimenhyDRINATE [Dimenhydrinate] 50 mg PO DAILY 12/10/18 12/10/18 History Caffeine 200 mg PO NEEDED PRN 12/11/18 12/11/18 History Cholecalciferol (Vitamin D3) 1,000 unit PO DAILY 12/11/18 12/11/18 History [Vitamin D3 1,000 Unit Cap] Cyanocobalamin (Vitamin B-12) 1,000 mcg SQ MONTHLY 12/11/18 12/11/18 History [Cyanocobalamin 1,000mcg/mL Vial] Fluoxetine HCl 40 mg PO DAILY 12/11/18 12/11/18 History Guaifenesin/Dextromethorphan 1 tab PO BID 12/11/18 12/11/18 History [Mucinex Dm ER 1,200-60 mg Tab] Multivitamin [Multivitamins] 1 each PO DAILY 12/11/18 12/11/18 History diphenhydrAMINE HCl 25 mg PO Q6HP PRN 12/11/18 12/11/18 History [Diphenhydramine HCl] Prescriptions/Medication Reconciliation: No Action Simvastatin [Zocor] 20 mg PO HS Omeprazole [Omeprazole 40mg Capsule] 40 mg PO DAILY Montelukast Sodium [Montelukast 10mg Tab] 10 mg PO HS Hydrocodone/Acetaminophen [Hydrocodone-Acetamin 10-325 mg] 1 each PO QID Buspirone HCl [Buspar 10mg tablet] 10 mg PO TIDP PRN PRN Reason: DEPRESSION/MOOD Baclofen [Lioresal 10mg tablet] 10 mg PO BIDP PRN PRN Reason: PAIN Amlodipine Besylate [Norvasc 5mg tablet] 5 mg PO DAILY Gabapentin [Gabapentin 300mg Cap] 300 mg PO DAILY Fluoxetine HCl 40 mg PO DAILY Caffeine 200 mg PO NEEDED PRN PRN Reason: ALERTNESS Multivitamin [Multivitamins] 1 each PO DAILY Guaifenesin/Dextromethorphan [Mucinex Dm ER 1,200-60 mg Tab] 1 tab PO BID Cyanocobalamin (Vitamin B-12) [Cyanocobalamin 1,000mcg/mL Vial] 1,000 mcg SQ MONTHLY Cholecalciferol (Vitamin D3) [Vitamin D3 1,000 Unit Cap] 1,000 unit PO DAILY diphenhydrAMINE HCl [Diphenhydramine HCl] 25 mg PO Q6HP PRN PRN Reason: ALLERGIES Ibuprofen [Ibuprofen 600mg Tablet] 600 mg PO Q6HP PRN PRN Reason: PAIN dimenhyDRINATE [Dimenhydrinate] 50 mg PO DAILY
== END 2018-12-11 18:35 | disposition home or self-care (01) ==
LOC: ER 12:38 → 2ND 12:38
PROVIDERS: ADMIT Family Medicine; ATTEND Internal Medicine Adolescent Medicine
CPT/HCPCS: 36415; 70450; 71010; 71045; 80048; 80053; 80305; 81001; 82140; 82962; 85025; 99284; G0378